=== PATIENT | female | born 1945 | race Caucasian/White ===

== ENCOUNTER 2018-08-21 14:09 | Emergency (ER) | payer MEDICARE, MEDICAID ==
[~2018-08-21] VITALS: Ht 162.6 cm; Wt 70.5 kg
[~2018-08-21 14:09] MED LIST: ALBU8HFA PO; BACL10TA PO; GLUC100017 PO; HYDR-3965 PO; MULT-785 PO; OMEP40CA37 PO
--- NOTE | 2018-08-21 14:33 | NUR ---
Not in lobby at [id number]
[2018-08-21 14:48] LABS: BASOPHILS % (AUTO) 0.4 % (0-1); EOSINOPHILS # (AUTO) 0.1 X10'3 (0-0.9); EOSINOPHILS % (AUTO) 1.9 % (0-6); HEMATOCRIT 39.8 % (35.0-45.0); HEMOGLOBIN 13.5 g/dl (12.0-16.0); LYMPHOCYTES # (AUTO) 1.9 X10'3 (1.1-4.8); MEAN CORPUSCULAR HEMOGLOBIN 32.9 PG (27.0-31.0); MEAN CORPUSCULAR HGB CONC 33.9 g/dL (33.0-36.5); MEAN PLATELET VOLUME 7.9 FL (7.4-10.4); MONOCYTES # (AUTO) 0.7 X10'3 (0-0.9); MONOCYTES % (AUTO) 10.7 % (2-12); NEUTROPHILS # (AUTO) 3.6 X10'3 (1.8-7.7); PLATELET COUNT 169 X10'3 (140-440); RED CELL DISTRIBUTION WIDTH 14.6 % (11.5-14.5); WHITE BLOOD COUNT 6.3 X10'3 (4.5-11.0)
[2018-08-21 15:02] LABS: PARTIAL THROMBOPLASTIN TIME 32 SECONDS (22-32); PROTHROMBIN TIME 10.4 SECONDS (9.0-12.0)
[2018-08-21 17:15] LABS: ALANINE AMINOTRANSFERASE 12 U/L (12-78); ALBUMIN 3.6 G/DL (3.4-5.0); ALKALINE PHOSPHATASE 87 IU/L (46-116); ANION GAP 10 (8-16); ASPARTATE AMINO TRANSFERASE 21 U/L (10-37); BILIRUBIN,TOTAL 0.4 MG/DL (0.1-1.0); BLOOD UREA NITROGEN 12 MG/DL (7-18); BUN/CREATININE RATIO 20.3 (6.6-38.0); CALCIUM 9.2 MG/DL (8.5-10.1); CHLORIDE 102 MMOL/L (99-107); CREATININE 0.59 MG/DL (0.40-0.90); GLUCOSE 93 MG/DL (70-104); POTASSIUM 4.1 MMOL/L (3.5-5.1); SODIUM 137 MMOL/L (135-145); TOTAL CARBON DIOXIDE 25.1 MMOL/L (24-32); TOTAL PROTEIN 7.1 G/DL (6.4-8.2); eGFR > 90 ML/MIN
[2018-08-21] MEDS ORDERED: methylPREDNISolone sod succ 125mg/2ml vial IV ONE (18:15)
[2018-08-21] MEDS ORDERED: albuterol 2.5 MG/3 ML nebule CONTNEB PRN (18:15)
[2018-08-21] MEDS ORDERED: cloNIDine 0.1 mg tablet PO ONE (19:05)
[2018-08-21] MEDS ORDERED: ALBU6.7H INH (19:06)
[2018-08-21] MEDS ORDERED: PRED20TA PO (19:06)
[2018-08-21 19:38] VITALS: BP 140/73
== END 2018-08-21 19:42 | disposition home or self-care (01) ==
LOC: ER 14:10
DX: J44.1 Chronic obstructive pulmonary disease with (acute) exacerbation (principal); I10 Essential (primary) hypertension; G89.29 Other chronic pain; Z90.710 Acquired absence of both cervix and uterus; Z90.49 Acquired absence of other specified parts of digestive tract; Z79.899 Other long term (current) drug therapy; Z88.6 Allergy status to analgesic agent; Z88.5 Allergy status to narcotic agent; Z88.2 Allergy status to sulfonamides
CPT/HCPCS: 36415; 71045; 80053; 84484; 85025; 85610; 85730; 93005; 94644; 94760; 96374; 99285; J2930

== ENCOUNTER 2018-08-26 09:18 | Inpatient (IN) | payer MEDICARE, MEDICAID | END 2018-08-30 15:50 | disposition home or self-care (01) | LOC: ER 09:18 → SUR 3N 08-27 20:41 → ED HOLD 12:03 → SUR 3N 15:55 | DX: J96.01 Acute respiratory failure with hypoxia (principal); I50.30 Unspecified diastolic (congestive) heart failure; J44.1 Chronic obstructive pulmonary disease with (acute) exacerbation; E78.5 Hyperlipidemia, unspecified ==

== ENCOUNTER 2018-10-24 09:09 | Emergency (ER) | payer MEDICARE, MEDICAID ==
[~2018-10-24 09:09] MED LIST changes: -ALBU8HFA PO; -BACL10TA PO; +BRIM5DRO2 EACHEYE; +BUDE10.2 INH; -GLUC100017 PO; -HYDR-3965 PO; -MULT-785 PO; -OMEP40CA37 PO
[2018-10-24 09:54] LABS: BASOPHILS % (AUTO) 0.2 % (0-1); HEMATOCRIT 38.6 % (35.0-45.0); HEMOGLOBIN 12.9 g/dl (12.0-16.0); LYMPHOCYTES # (AUTO) 0.7 X10'3 (1.1-4.8); LYMPHOCYTES % (AUTO) 18.3 % (21-51); MEAN CORPUSCULAR HEMOGLOBIN 33.2 PG (27.0-31.0); MEAN CORPUSCULAR HGB CONC 33.5 g/dL (33.0-36.5); MEAN CORPUSCULAR VOLUME 99.1 FL (78-98); MEAN PLATELET VOLUME 8.2 FL (7.4-10.4); MONOCYTES # (AUTO) 0.4 X10'3 (0-0.9); MONOCYTES % (AUTO) 10.3 % (2-12); NEUTROPHILS # (AUTO) 2.8 X10'3 (1.8-7.7); NEUTROPHILS % (AUTO) 70.2 % (42-75); PLATELET COUNT 161 X10'3 (140-440); RED BLOOD COUNT 3.89 X10'6 (4.20-5.60); RED CELL DISTRIBUTION WIDTH 13.7 % (11.5-14.5)
[2018-10-24 10:07] LABS: GLUCOSE 76 MG/DL (70-104); POTASSIUM 3.5 MMOL/L (3.5-5.1); SODIUM 138 MMOL/L (135-145)
[2018-10-24 10:08] LABS: ALANINE AMINOTRANSFERASE 19 U/L (12-78); ALBUMIN 3.7 G/DL (3.4-5.0); ALBUMIN/GLOBULIN RATIO 1.1 (1.1-1.5); ALKALINE PHOSPHATASE 86 IU/L (46-116); ANION GAP 7 (8-16); ASPARTATE AMINO TRANSFERASE 22 U/L (10-37); BILIRUBIN,TOTAL 0.4 MG/DL (0.1-1.0); BLOOD UREA NITROGEN 13 MG/DL (7-18); BUN/CREATININE RATIO 23.6 (6.6-38.0); CHLORIDE 103 MMOL/L (99-107); CREATININE 0.55 MG/DL (0.40-0.90); PARTIAL THROMBOPLASTIN TIME 32 SECONDS (22-32); TOTAL PROTEIN 7.2 G/DL (6.4-8.2); eGFR > 90 ML/MIN
[2018-10-24] MEDS ORDERED: methylPREDNISolone sod succ 125mg/2ml vial IV ONE (10:15)
[2018-10-24] MEDS ORDERED: normal saline 1000ML IV soln IVB ONE (10:15)
[2018-10-24] MEDS ORDERED: ipratropium/albuterol 3ml nebule NEB ONE (10:15)
[2018-10-24 11:06] LABS: ABG HCO3 22.7 mmol/L (22.0-26.0); ABG OXYGEN SATURATION 98.2 % (95-98); ABG PCO2 (T) 38.3 mmHg (32.0-45.0); ABG PO2 (T) 133.7 mmHg (83-108); ALLEN'S TEST Positive; FCOHb 0.3 % (0.5-1.5); FLOW 2 L/min; FMetHb 0.1 % (0.3-1.12); FO2Hb 97.8 % (94-100); TOTAL HEMOGLOBIN 13.1 G/dl (12.0-16.0)
[2018-10-24 11:12] VITALS: BP 106/56
[2018-10-24] MEDS ORDERED: INHA1INH2 (11:46)
[2018-10-24] MEDS ORDERED: ALBU18HF2 INH (11:46)
[2018-10-24] MEDS ORDERED: PRED20TA PO (11:48)
[2018-10-24] MEDS ORDERED: loperamide 2mg capsule PO ONE (11:50)
== END 2018-10-24 12:14 | disposition home or self-care (01) ==
LOC: ER 09:09
DX: J44.1 Chronic obstructive pulmonary disease with (acute) exacerbation (principal); I48.91 Unspecified atrial fibrillation; J44.9 Chronic obstructive pulmonary disease, unspecified; G89.29 Other chronic pain; M54.9 Dorsalgia, unspecified; Z90.710 Acquired absence of both cervix and uterus; Z87.891 Personal history of nicotine dependence; Z88.6 Allergy status to analgesic agent; Z88.8 Allergy status to other drugs, medicaments and biological substances
CPT/HCPCS: 36415; 36600; 71046; 80053; 82803; 83880; 84484; 85018; 85025; 85610; 85730; 93005; 94640; 96374; 99284; J2930; J7030

== ENCOUNTER 2018-10-26 10:11 | Emergency (ER) | payer MEDICARE, MEDICAID ==
[~2018-10-26] VITALS: Ht 165.1 cm; Wt 56.8 kg
[~2018-10-26 10:11] MED LIST changes: +ALBU18HF2 INH; +INHA1INH2; +PRED20TA PO
--- NOTE | 2018-10-26 10:40 | NUR ---
pt is resting quietly on gurney, waiting to be evaluated by provider, BIB family c/o nonproductive cough x 1 day "had to use my inhaler twice as much", pt is on 22/01 at 2 liters nasal cannula, quit smoking 2 years ago, no fever/chill, no n/v, pt also c/o "dark red blood on toilet paper" today once "loose stool", pt seen here for SOB and given "allergy pill"
--- NOTE | 2018-10-26 11:12 | NUR ---
Dr Krishnamurthy at bedside to evaluate pt, gave verbal order to dc blood cx and lactic, pt to xray
[2018-10-26 11:23] LABS: BASOPHILS % (AUTO) 0.1 % (0-1); EOSINOPHILS % (AUTO) 0 % (0-6); HEMATOCRIT 35.2 % (35.0-45.0); HEMOGLOBIN 11.7 g/dl (12.0-16.0); LYMPHOCYTES # (AUTO) 0.5 X10'3 (1.1-4.8); LYMPHOCYTES % (AUTO) 4.7 % (21-51); MEAN CORPUSCULAR HEMOGLOBIN 33.1 PG (27.0-31.0); MEAN CORPUSCULAR HGB CONC 33.3 g/dL (33.0-36.5); MEAN CORPUSCULAR VOLUME 99.3 FL (78-98); MEAN PLATELET VOLUME 8.5 FL (7.4-10.4); MONOCYTES # (AUTO) 0.6 X10'3 (0-0.9); MONOCYTES % (AUTO) 5.2 % (2-12); NEUTROPHILS # (AUTO) 9.9 X10'3 (1.8-7.7); PLATELET COUNT 182 X10'3 (140-440); RED BLOOD COUNT 3.54 X10'6 (4.20-5.60); RED CELL DISTRIBUTION WIDTH 13.7 % (11.5-14.5)
[2018-10-26 11:38] LABS: ALANINE AMINOTRANSFERASE 22 U/L (12-78); ALBUMIN 3.5 G/DL (3.4-5.0); ALBUMIN/GLOBULIN RATIO 1.1 (1.1-1.5); ALKALINE PHOSPHATASE 76 IU/L (46-116); ANION GAP 6 (8-16); ASPARTATE AMINO TRANSFERASE 24 U/L (10-37); BILIRUBIN,TOTAL 0.3 MG/DL (0.1-1.0); BLOOD UREA NITROGEN 16 MG/DL (7-18); BUN/CREATININE RATIO 25.4 (6.6-38.0); CHLORIDE 104 MMOL/L (99-107); CREATININE 0.63 MG/DL (0.40-0.90); GLUCOSE 116 MG/DL (70-104); SODIUM 138 MMOL/L (135-145); TOTAL CARBON DIOXIDE 27.8 MMOL/L (24-32); TOTAL PROTEIN 6.7 G/DL (6.4-8.2); eGFR > 90 ML/MIN
[2018-10-26 14:25] VITALS: BP 105/68
== END 2018-10-26 14:26 | disposition home or self-care (01) ==
LOC: ER 10:12
DX: K92.2 Gastrointestinal hemorrhage, unspecified (principal); J44.9 Chronic obstructive pulmonary disease, unspecified; I48.91 Unspecified atrial fibrillation; G89.29 Other chronic pain; M54.9 Dorsalgia, unspecified; Z90.710 Acquired absence of both cervix and uterus; Z87.891 Personal history of nicotine dependence; Z88.6 Allergy status to analgesic agent; Z88.8 Allergy status to other drugs, medicaments and biological substances
CPT/HCPCS: 71046; 80053; 85025; 93005; 99284

== ENCOUNTER 2018-10-27 10:13 | Inpatient (IN) | payer MEDICARE, MEDICAID ==
[~2018-10-27] VITALS: Ht 165.1 cm; Wt 56.8 kg
[2018-10-27] MEDS ORDERED: ipratropium/albuterol 3ml nebule NEB ONE (10:20)
[2018-10-27] MEDS ORDERED: methylPREDNISolone sod succ 125mg/2ml vial IV ONE (10:20)
[2018-10-27 10:40] LABS: BASOPHILS % (AUTO) 0.1 % (0-1); EOSINOPHILS % (AUTO) 0 % (0-6); HEMATOCRIT 35.5 % (35.0-45.0); HEMOGLOBIN 11.8 g/dl (12.0-16.0); LYMPHOCYTES # (AUTO) 0.8 X10'3 (1.1-4.8); LYMPHOCYTES % (AUTO) 5.2 % (21-51); MEAN CORPUSCULAR HEMOGLOBIN 33.1 PG (27.0-31.0); MEAN CORPUSCULAR HGB CONC 33.2 g/dL (33.0-36.5); MEAN CORPUSCULAR VOLUME 99.5 FL (78-98); MEAN PLATELET VOLUME 8.2 FL (7.4-10.4); MONOCYTES # (AUTO) 1.3 X10'3 (0-0.9); MONOCYTES % (AUTO) 8.6 % (2-12); NEUTROPHILS # (AUTO) 13.1 X10'3 (1.8-7.7); NEUTROPHILS % (AUTO) 86.1 % (42-75); PLATELET COUNT 189 X10'3 (140-440); RED BLOOD COUNT 3.57 X10'6 (4.20-5.60); RED CELL DISTRIBUTION WIDTH 13.7 % (11.5-14.5); WHITE BLOOD COUNT 15.2 X10'3 (4.5-11.0)
[2018-10-27 10:47] LABS: INR 1.1 INR; PARTIAL THROMBOPLASTIN TIME 34 SECONDS (22-32)
[2018-10-27 10:50] LABS: ALANINE AMINOTRANSFERASE 17 U/L (12-78); ALBUMIN 3.3 G/DL (3.4-5.0); ALBUMIN/GLOBULIN RATIO 0.9 (1.1-1.5); ALKALINE PHOSPHATASE 74 IU/L (46-116); ANION GAP 11 (8-16); ASPARTATE AMINO TRANSFERASE 18 U/L (10-37); BILIRUBIN,TOTAL 0.7 MG/DL (0.1-1.0); BLOOD UREA NITROGEN 13 MG/DL (7-18); BUN/CREATININE RATIO 20.6 (6.6-38.0); CALCIUM 8.9 MG/DL (8.5-10.1); CHLORIDE 98 MMOL/L (99-107); CREATININE 0.63 MG/DL (0.40-0.90); GLUCOSE 169 MG/DL (70-104); POTASSIUM 3.3 MMOL/L (3.5-5.1); SODIUM 134 MMOL/L (135-145); TOTAL CARBON DIOXIDE 25.3 MMOL/L (24-32); TOTAL PROTEIN 6.8 G/DL (6.4-8.2); eGFR > 90 ML/MIN
[2018-10-27] MEDS ORDERED: levoFLOXACIN-Levaquin 750MG/D5 150 ML IV ONE (11:10)
[2018-10-27] MEDS ORDERED: cefepime 2g/NS 100ml ADVANTAGE 100 ML IV ONE (11:10)
[2018-10-27] MEDS ORDERED: mag hydrox/Alum hydrox/simeth 30ml oral suspension PO PRN (11:35)
[2018-10-27] MEDS ORDERED: ondansetron/PF 4mg/2ml inj IV PRN (11:35)
[2018-10-27] MEDS ORDERED: magnesium hydroxide 30ml (MOM) UD suspension PO PRN (11:35)
[2018-10-27] MEDS ORDERED: acetaminophen 325mg tablet PO PRN (11:35)
[2018-10-27] MEDS: normal saline 1000ml 1,000 ML IV SCH (11:57)
[2018-10-27] MEDS: ipratropium/albuterol 3ml nebule NEB SCH ×3 (13:49→23:14)
[2018-10-27] MEDS ORDERED: ipratropium/albuterol 3ml nebule ONE (13:49)
[2018-10-27] MEDS: methylPREDNISolone sod succ 125mg/2ml vial IV SCH ×2 (14:19→20:01)
--- NOTE | 2018-10-27 14:20 | NUR ---
attempted to call report, was advised that the receiving nurse had 4 pt's already and that they are transferring 1 of them to ortho floor, after that happens the nurse can take report. will call again.
[2018-10-27] MEDS ORDERED: morphine 4 MG/ML inj SYRINge IV ONE (14:50)
[2018-10-27 15:50] VITALS: BP 110/57
[2018-10-27 18:00] VITALS: BP 127/79
--- NOTE | 2018-10-27 18:07 | NUR ---
Patient in room PCU 3028. I have received report from ALICIA Kaba and had the opportunity to ask questions and assume patient care. Pt seen for bedside report.
--- NOTE | 2018-10-27 18:08 | NUR ---
Patient in room PCU 3028. I have received report from Stephania VARGAS and had the opportunity to ask questions and assume patient care. pt resting, no complaints, family at bedside
[2018-10-27] MEDS ORDERED: potassium Cl 20 mEq SR tablet PO STA (18:16)
[2018-10-27] MEDS: heparin, porcine 5000 units/ml vial SQ SCH (20:03)
[2018-10-27] MEDS: cefepime 2g/NS 100ml ADVANTAGE 100 ML IV SCH (20:07)
[2018-10-27 22:00] VITALS: BP 123/56
[2018-10-28] MEDS: normal saline 1000ml 1,000 ML IV SCH ×2 (00:41→10:12)
--- NOTE | 2018-10-28 01:32 | NUR ---
pt stated she gets night sweats routinely. soaked through gown and linens. up to commode, linens and gown changed
[2018-10-28 02:00] VITALS: BP 101/53
[2018-10-28] MEDS: methylPREDNISolone sod succ 125mg/2ml vial IV SCH ×2 (02:17→08:41)
[2018-10-28] MEDS: ipratropium/albuterol 3ml nebule NEB SCH ×6 (03:16→23:35)
[2018-10-28 05:28] LABS: ALBUMIN 2.6 G/DL (3.4-5.0); ANION GAP 8 (8-16); BLOOD UREA NITROGEN 14 MG/DL (7-18); BUN/CREATININE RATIO 22.6 (6.6-38.0); CALCIUM 9.1 MG/DL (8.5-10.1); CHLORIDE 107 MMOL/L (99-107); CREATININE 0.62 MG/DL (0.40-0.90); GLUCOSE 162 MG/DL (70-104); POTASSIUM 4.2 MMOL/L (3.5-5.1); SODIUM 140 MMOL/L (135-145); TOTAL CARBON DIOXIDE 25.2 MMOL/L (24-32); eGFR > 90 ML/MIN
[2018-10-28 05:30] LABS: BASOPHILS % (AUTO) 0.1 % (0-1); EOSINOPHILS % (AUTO) 0 % (0-6); HEMATOCRIT 34.3 % (35.0-45.0); HEMOGLOBIN 11.4 g/dl (12.0-16.0); LYMPHOCYTES # (AUTO) 0.9 X10'3 (1.1-4.8); MEAN CORPUSCULAR HEMOGLOBIN 33.2 PG (27.0-31.0); MEAN CORPUSCULAR HGB CONC 33.3 g/dL (33.0-36.5); MEAN CORPUSCULAR VOLUME 99.9 FL (78-98); MEAN PLATELET VOLUME 8.6 FL (7.4-10.4); MONOCYTES # (AUTO) 0.3 X10'3 (0-0.9); MONOCYTES % (AUTO) 2.2 % (2-12); NEUTROPHILS # (AUTO) 13.9 X10'3 (1.8-7.7); NEUTROPHILS % (AUTO) 91.7 % (42-75); PLATELET COUNT 194 X10'3 (140-440); RED BLOOD COUNT 3.43 X10'6 (4.20-5.60); RED CELL DISTRIBUTION WIDTH 13.4 % (11.5-14.5); WHITE BLOOD COUNT 15.1 X10'3 (4.5-11.0)
--- NOTE | 2018-10-28 06:15 | NUR ---
Patient in room PCU 3028. I have received report from ALICIA Kaba and had the opportunity to ask questions and assume patient care.
--- NOTE | 2018-10-28 06:19 | NUR ---
Problems reprioritized. Patient report given, questions answered & plan of care reviewed with Fadia VARGAS.
[2018-10-28 06:30] VITALS: BP 117/63
[2018-10-28] MEDS: cefepime 2g/NS 100ml ADVANTAGE 100 ML IV SCH ×2 (08:41→20:55)
[2018-10-28] MEDS: heparin, porcine 5000 units/ml vial SQ SCH ×2 (08:42→20:55)
[2018-10-28 11:30] VITALS: BP 117/67
[2018-10-28] MEDS: lactose-reduced food (Ensure Enlive) - 237ml bottle PO SCH ×2 (13:00→18:02)
[2018-10-28] MEDS: acetaminophen 325mg tablet PO PRN ×2 (15:16→22:13)
[2018-10-28] MEDS: methylPREDNISolone sod succ/PF 40mg inj. IV SCH ×2 (15:16→20:55)
[2018-10-28 17:22] VITALS: BP 126/63
[2018-10-28 18:00] VITALS: BP 132/63
--- NOTE | 2018-10-28 18:35 | NUR ---
Problems reprioritized. Patient report given, questions answered & plan of care reviewed with ALICIA Garrett.
[2018-10-28] MEDS: lactobacillus rhamnosus 10,000 MMU CELLS/CAPSULE PO SCH (20:55)
[2018-10-28 22:00] VITALS: BP 137/69
[2018-10-29] MEDS: normal saline 1000ml 1,000 ML IV SCH (00:50)
[2018-10-29] MEDS: methylPREDNISolone sod succ/PF 40mg inj. IV SCH ×3 (01:41→19:58)
[2018-10-29 02:00] VITALS: BP 109/47
[2018-10-29] MEDS: ipratropium/albuterol 3ml nebule NEB SCH ×6 (03:17→23:16)
[2018-10-29 05:09] LABS: BASOPHILS % (AUTO) 0.2 % (0-1); EOSINOPHILS % (AUTO) 0 % (0-6); HEMATOCRIT 30.2 % (35.0-45.0); HEMOGLOBIN 10.1 g/dl (12.0-16.0); LYMPHOCYTES # (AUTO) 0.9 X10'3 (1.1-4.8); LYMPHOCYTES % (AUTO) 5.7 % (21-51); MEAN CORPUSCULAR HEMOGLOBIN 33.3 PG (27.0-31.0); MEAN CORPUSCULAR HGB CONC 33.5 g/dL (33.0-36.5); MEAN CORPUSCULAR VOLUME 99.2 FL (78-98); MEAN PLATELET VOLUME 8.8 FL (7.4-10.4); MONOCYTES # (AUTO) 0.4 X10'3 (0-0.9); MONOCYTES % (AUTO) 2.6 % (2-12); NEUTROPHILS # (AUTO) 13.8 X10'3 (1.8-7.7); NEUTROPHILS % (AUTO) 91.5 % (42-75); PLATELET COUNT 209 X10'3 (140-440); RED BLOOD COUNT 3.05 X10'6 (4.20-5.60); RED CELL DISTRIBUTION WIDTH 13.6 % (11.5-14.5); WHITE BLOOD COUNT 15.1 X10'3 (4.5-11.0)
[2018-10-29 05:11] LABS: ALBUMIN 2.3 G/DL (3.4-5.0); ANION GAP 9 (8-16); BLOOD UREA NITROGEN 24 MG/DL (7-18); BUN/CREATININE RATIO 42.1 (6.6-38.0); CALCIUM 8.8 MG/DL (8.5-10.1); CHLORIDE 108 MMOL/L (99-107); CREATININE 0.57 MG/DL (0.40-0.90); GLUCOSE 165 MG/DL (70-104); POTASSIUM 4.1 MMOL/L (3.5-5.1); SODIUM 140 MMOL/L (135-145); TOTAL CARBON DIOXIDE 23.2 MMOL/L (24-32); eGFR > 90 ML/MIN
[2018-10-29 06:00] VITALS: BP 143/70
[2018-10-29] MEDS: lactose-reduced food (Ensure Enlive) - 237ml bottle PO SCH ×3 (08:00→18:00)
[2018-10-29] MEDS: cefepime 2g/NS 100ml ADVANTAGE 100 ML IV SCH ×2 (09:35→19:58)
[2018-10-29] MEDS: heparin, porcine 5000 units/ml vial SQ SCH ×2 (09:35→19:59)
[2018-10-29] MEDS: lactobacillus rhamnosus 10,000 MMU CELLS/CAPSULE PO SCH ×2 (09:36→19:58)
[2018-10-29] MEDS: acetaminophen 325mg tablet PO PRN ×2 (10:08→19:01)
[2018-10-29 11:00] VITALS: BP 112/64
--- NOTE | 2018-10-29 15:46 | NUR ---
Noted twice that patient HR jumps to the 130's when using the commode.
--- NOTE | 2018-10-29 15:48 | NUR ---
page to Dr. Watson MESSAGE: [id number] Gissel Pascual Twice the patient HR jumps to the 130's when using the commode. PEE Cartwright [id number]
--- NOTE | 2018-10-29 18:40 | NUR ---
Report to Marcelle VARGAS
[2018-10-29 19:00] VITALS: BP 129/72
[2018-10-29] MEDS ORDERED: methylPREDNISolone sod succ 125mg/2ml vial IV ONE (20:00)
[2018-10-29] MEDS ORDERED: methylPREDNISolone sod succ/PF 40mg inj. IV SCH (22:00)
[2018-10-29 23:00] VITALS: BP 112/56
[2018-10-30] MEDS: ipratropium/albuterol 3ml nebule NEB SCH ×4 (03:47→15:28)
[2018-10-30 05:39] LABS: BASOPHILS % (AUTO) 0.1 % (0-1); EOSINOPHILS % (AUTO) 0 % (0-6); HEMATOCRIT 31.3 % (35.0-45.0); HEMOGLOBIN 10.5 g/dl (12.0-16.0); LYMPHOCYTES # (AUTO) 1.1 X10'3 (1.1-4.8); LYMPHOCYTES % (AUTO) 9.8 % (21-51); MEAN CORPUSCULAR HGB CONC 33.5 g/dL (33.0-36.5); MEAN CORPUSCULAR VOLUME 98.3 FL (78-98); MEAN PLATELET VOLUME 8.4 FL (7.4-10.4); MONOCYTES # (AUTO) 0.6 X10'3 (0-0.9); MONOCYTES % (AUTO) 4.9 % (2-12); NEUTROPHILS # (AUTO) 9.8 X10'3 (1.8-7.7); NEUTROPHILS % (AUTO) 85.2 % (42-75); PLATELET COUNT 220 X10'3 (140-440); RED BLOOD COUNT 3.19 X10'6 (4.20-5.60); RED CELL DISTRIBUTION WIDTH 13.5 % (11.5-14.5); WHITE BLOOD COUNT 11.4 X10'3 (4.5-11.0)
[2018-10-30 05:41] LABS: ALBUMIN 2.4 G/DL (3.4-5.0); ANION GAP 5 (8-16); BLOOD UREA NITROGEN 26 MG/DL (7-18); BUN/CREATININE RATIO 41.9 (6.6-38.0); CALCIUM 8.7 MG/DL (8.5-10.1); CHLORIDE 107 MMOL/L (99-107); CREATININE 0.62 MG/DL (0.40-0.90); GLUCOSE 168 MG/DL (70-104); SODIUM 140 MMOL/L (135-145); eGFR > 90 ML/MIN
--- NOTE | 2018-10-30 06:25 | NUR ---
Patient in room PCU 3028. I have received report from Marcelle RN and had the opportunity to ask questions and assume patient care.
[2018-10-30 07:00] VITALS: BP 130/68
[2018-10-30] MEDS: cefepime 2g/NS 100ml ADVANTAGE 100 ML IV SCH (07:51)
[2018-10-30] MEDS: heparin, porcine 5000 units/ml vial SQ SCH (07:52)
[2018-10-30] MEDS: lactobacillus rhamnosus 10,000 MMU CELLS/CAPSULE PO SCH (07:52)
[2018-10-30] MEDS: methylPREDNISolone sod succ/PF 40mg inj. IV SCH (07:52)
[2018-10-30] MEDS: acetaminophen 325mg tablet PO PRN ×2 (07:53→14:09)
[2018-10-30] MEDS: lactose-reduced food (Ensure Enlive) - 237ml bottle PO SCH ×3 (08:00→18:00)
[2018-10-30 11:00] VITALS: BP 146/79
[2018-10-30] MEDS ORDERED: LEVO500T89 PO (12:20)
[2018-10-30] MEDS ORDERED: PRED10TA23 PO (12:20)
--- NOTE | 2018-10-30 13:00 | NUR ---
Nurse and Aid ambulated with Pt. Pt ambulated using FWW while on 3L NC. Heart rate was elevated to 135 and O2 sat dropped to 93%, Pt was short of breath, hunched over and had to take a break after 25ft for 3 minutes to catch breath. Pt ambulated for a total of 50ft in patricia
[2018-10-30 15:00] VITALS: BP 157/84
--- NOTE | 2018-10-30 18:20 | NUR ---
Problems reprioritized. Patient report given, questions answered & plan of care reviewed with Muna VARGAS.
--- NOTE | 2018-10-30 19:27 | NUR ---
Pt & spouse upset that [facility] hasn't delivered their FWW DME as of yet. is going to [employer] to buy one so that he can take home. I removed tele, and PIV, reviewed d/c instructions and medications with . Also explained for them to keep their receipt for FWW and they can submit it to their insurance in hopes of reimbursement. Belongings gathered, d/c paperwork signed, and wheelchair in room ready for patient's d/c as soon as returns with walker.
== END 2018-10-30 19:00 | disposition home health service (06) | DRG 871 ==
LOC: ER 10:14 → PCU 3S 11:43
PROVIDERS: ADMIT Family Medicine; ATTEND Family Medicine
DX: A41.9 Sepsis, unspecified organism (principal); J18.9 Pneumonia, unspecified organism; J96.20 Acute and chronic respiratory failure, unspecified whether with hypoxia or hypercapnia; J44.1 Chronic obstructive pulmonary disease with (acute) exacerbation; J44.0 Chronic obstructive pulmonary disease with (acute) lower respiratory infection; E87.6 Hypokalemia; I48.91 Unspecified atrial fibrillation; G89.29 Other chronic pain; Z90.49 Acquired absence of other specified parts of digestive tract; Z90.710 Acquired absence of both cervix and uterus; Z99.81 Dependence on supplemental oxygen; Z88.6 Allergy status to analgesic agent; Z88.8 Allergy status to other drugs, medicaments and biological substances; Z87.891 Personal history of nicotine dependence
CPT/HCPCS: 36415; 71045; 80048; 80053; 83605; 83880; 84484; 85025; 85610; 85730; 87040; 87070; 93005; 94640; 94760; 96365; 97116; 97161; 99285; G0378; J0692; J1644; J1956; J2920; J2930; J7030